=== PATIENT | male | born 1985 | race Asian ===

== ENCOUNTER 2019-04-21 16:52 | Emergency (ER) | payer MEDICAID ==
[~2019-04-21] VITALS: Ht 167.6 cm; Wt 59.0 kg
[2019-04-21 16:59] VITALS: Ht 167.6 cm; Wt 59.0 kg
[2019-04-21 18:40] VITALS: BP 121/68
== END 2019-04-21 18:41 | disposition home or self-care (01) ==
LOC: ED 16:52
DX: S81.012A Laceration without foreign body, left knee, initial encounter (principal); W22.8XXA Striking against or struck by other objects, initial encounter; Y93.89 Activity, other specified; Y92.098 Other place in other non-institutional residence as the place of occurrence of the external cause; Y99.8 Other external cause status
CPT/HCPCS: 90715; J2001

== ENCOUNTER 2019-05-05 15:28 | Emergency (ER) | payer MEDICAID ==
[2019-05-05 16:25] VITALS: BP 111/70
== END 2019-05-05 16:25 | disposition home or self-care (01) ==
LOC: ED 15:28
DX: S81.012D Laceration without foreign body, left knee, subsequent encounter (principal); X58.XXXD Exposure to other specified factors, subsequent encounter